=== PATIENT | male | born 2000 | race African-American/Black ===

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

== ENCOUNTER 2018-01-11 09:47 | Emergency (ER) | payer SELFPAY ==
[~2018-01-11 09:47] MED LIST: Lidocaine 1% 20 ML MDV ONE
[2018-01-11] MEDS ORDERED: Azithromycin 250 MG TAB ONE (10:11)
[2018-01-11] MEDS ORDERED: Warfarin Sodium 5 MG TAB ONE (10:11)
[2018-01-11] MEDS ORDERED: cefTRIAXone\\ROCEPHIN 250 MG VIAL ONE (10:11)
[2018-01-11 10:15] LABS: Bilirubin Negative (Negative); Blood, Urine Negative (Negative); Clarity Clear (Clear); Glucose, Urine (Dipstick) Negative (Negative); Leukocyte Negative (Negative); Nitrite Negative (Negative); Protein, Urine (Dipstick) Trace mg/dL (Neg-Trace)
[2018-01-11 10:16] LABS: Specific Gravity, Urine 1.033 (1.002-1.036)
[2018-01-12 23:56] LABS: Chlamydia by PCR Not Detected (NotDetected); GC by PCR Not Detected (NotDetected)
== END 2018-01-11 10:44 | disposition home or self-care (01) ==
LOC: MADERS 09:47
DX: R30.0 Dysuria (principal)
CPT/HCPCS: 81003; 87491; 87591; 99283; J0696; J2001

== ENCOUNTER 2018-06-10 17:40 | Emergency (ER) | payer SELFPAY ==
--- NOTE | 2018-06-10 19:52 | RAD ---
LEFT ANKLE RADIOGRAPHS THREE VIEWS: 06/10/2018 PROVIDED CLINICAL HISTORY: Left foot pain. FINDINGS: There is no evidence for fracture or other acute osseous abnormality. If there is persistent clinical concern, conservative management and follow-up imaging are advised. IMPRESSION: As above. POS: [facility]
== END 2018-06-10 18:40 | disposition home or self-care (01) ==
LOC: MADERS 17:40
DX: S93.402A Sprain of unspecified ligament of left ankle, initial encounter (principal); X50.1XXA Overexertion from prolonged static or awkward postures, initial encounter

== ENCOUNTER 2020-01-16 12:23 | Emergency (ER) | payer SELFPAY ==
[2020-01-16] MEDS ORDERED: Ibuprofen 400 MG TAB ONE (12:55)
[2020-01-16] MEDS ORDERED: Clindamycin 150 MG CAP ONE (12:55)
[2020-01-16] MEDS ORDERED: Acetaminophen 500 MG TAB ONE (12:56)
== END 2020-01-16 13:05 | disposition home or self-care (01) ==
LOC: MADERS 12:23
DX: K02.9 Dental caries, unspecified (principal); F17.210 Nicotine dependence, cigarettes, uncomplicated
CPT/HCPCS: 99282

== ENCOUNTER 2020-04-25 13:09 | Emergency (ER) | payer SELFPAY ==
--- NOTE | 2020-04-25 14:23 | RAD ---
XR Chest Pa Lat STANDARD HISTORY: Cough and shortness of breath COMPARISON: None FINDINGS: The heart size is borderline. The lungs are well expanded without focal areas of consolidat ion, pneumothorax or pleural effusions. IMPRESSION: No radiographic evidence of acute cardiopulmonary process.
[2020-04-26 02:48] LABS: SARS-CoV-2 MS2 Positive; SARS-CoV-2 N Gene Positive; SARS-CoV-2 S Gene Positive; SARS-CoV-2 by NAA DETECTED (NotDetected); SARS-CoV-2 orf1ab Positive
== END 2020-04-25 14:45 | disposition home or self-care (01) ==
LOC: MADERS 13:09
DX: U07.1 COVID-19 (principal); F17.210 Nicotine dependence, cigarettes, uncomplicated
CPT/HCPCS: 71046; 87635; 87804; U0003